=== PATIENT | male | born 1995 | race Caucasian/White ===

== ENCOUNTER 2018-07-29 22:06 | Emergency (ER) | payer BC ==
[~2018-07-29] VITALS: Ht 162.6 cm; Wt 68.0 kg
[2018-07-29 22:10] VITALS: Ht 162.6 cm; Wt 68.0 kg
[2018-07-29 23:21] VITALS: BP 106/79
== END 2018-07-29 23:21 | disposition home or self-care (01) ==
LOC: ED 22:06
DX: R07.89 Other chest pain (principal); M54.5 Low back pain; V49.88XA Car occupant (driver) (passenger) injured in other specified transport accidents, initial encounter; Y93.I9 Activity, other involving external motion; Y92.413 State road as the place of occurrence of the external cause; Y99.8 Other external cause status